=== PATIENT | female | born 1975 | race American Indian/Alaskan Native ===

== ENCOUNTER 2016-06-26 13:20 | Outpatient (CLI) | payer MEDICAID ==
--- NOTE | 2016-06-26 15:55 | Mammography Report ---
BILATERAL DIGITAL SCREENING MAMMOGRAM with CAD: 06/26/16 13:20:00 CLINICAL: Baseline screening. FINDINGS: The breasts are heterogeneously dense, which may obscure small masses. Bilateral parenchymal asymmetries require additional imaging.No architectural distortion or suspicious calcifications. IMPRESSION: Bilateral asymmetries requiring further workup. BI-RADS CATEGORY: 0 -- Additional Imaging Evaluation Required RECOMMENDATION: Recall for bilateral lateralmedial and , spot compression views and bilateral breast ultrasound if needed. ACR BI-RADS MAMMOGRAPHIC CODES: 0 = Needs additional imaging evaluation; 1 = Negative; 2 = Benign; 3 = Probably benign; 4 = Suspicious; 5 = Malignant; 6 = Known biopsy-proven malignancy COMMENT: 1. Dense breast tissue, i.e., adenosis, fibrocystic changes, etc., may obscure an underlying neoplasm. 2. Approximately 10% of cancers are not detected with mammography. 3. A negative mammography report should not delay biopsy if a clinically suspicious mass is present. COMMENT: Patient follow-up letters are generated via our [employer] application.
== END 2016-06-26 13:21 | disposition home or self-care (01) ==
LOC: MAMMO 13:20
PROVIDERS: ATTEND Internal Medicine
DX: Z12.31 Encounter for screening mammogram for malignant neoplasm of breast (principal)
CPT/HCPCS: 77067; G0202

== ENCOUNTER 2016-07-31 14:10 | Outpatient (CLI) | payer MEDICAID ==
--- NOTE | 2016-07-31 15:02 | Mammography Report ---
Bilateral mammogram: Impression bilateral breast imaging is performed for areas of asymmetry described on recent screening examination. The 2 asymmetries described in the right breast and a single asymmetry in the left breast do not appear persistent on the additional compression images. Recommendation: Annual mammogram followup. BI-RADS CATEGORY: 1 = Negative ACR BI-RADS MAMMOGRAPHIC CODES: 0 = Needs additional imaging evaluation; 1 = Negative; 2 = Benign; 3 = Probably benign; 4 = Suspicious; 5 = Malignant; 6 = Known biopsy-proven malignancy COMMENT: 1. Dense breast tissue, i.e., adenosis, fibrocystic changes, etc., may obscure an underlying neoplasm. 2. Approximately 10% of cancers are not detected with mammography. 3. A negative mammography report should not delay biopsy if a clinically suspicious mass is present.
== END 2016-07-31 14:11 | disposition home or self-care (01) ==
LOC: MAMMO 14:10
PROVIDERS: ATTEND Internal Medicine
DX: R92.8 Other abnormal and inconclusive findings on diagnostic imaging of breast (principal)
CPT/HCPCS: 77066; G0204

== ENCOUNTER 2016-08-06 10:51 | Emergency (ER) | payer MEDICAID ==
[2016-08-06 11:15] VITALS: BP 108/67
--- NOTE | 2016-08-06 11:36 | Emergency Department Report ---
ED Female HPI - General Chief complaint: Urogenital-Female Stated complaint: PAINFUL URINATION Time Seen by Provider: 08/06/16 11:20 Source: patient Mode of arrival: Ambulatory Limitations: No Limitations - History of Present Illness MD Complaint: dysuria -: Gradual, days(s) Quality: burning Consistency: intermittent Worsens with: urination Are you Now?: No Associated Symptoms: dysuria, hematuria. denies: vaginal discharge, vaginal bleeding, abdominal pain, fever/chills, loss of appetite, rash - Related Data Previous Rx's Medication Instructions Recorded Last Taken Type Ciprofloxacin [Ciprofloxacin ORAL 500 mg PO Q12H #10 ml 08/06/16 Unknown Rx LIQ] Phenazopyridine [Pyridium] 200 mg PO BID #10 tab 08/06/16 Unknown Rx Allergies Allergy/AdvReac Type Severity Reaction Status Date / Time Sulfa (Sulfonamide Allergy Hives Verified 08/06/16 11:10 Antibiotics) ED Review of Systems ROS: Stated complaint: PAINFUL URINATION Other details as noted in HPI Constitutional: denies: chills, fever, malaise ENT: denies: throat pain Respiratory: denies: cough, shortness of breath Cardiovascular: denies: chest pain, palpitations Gastrointestinal: abdominal pain (suprapubic pain), nausea Genitourinary: urgency, dysuria, frequency, hematuria. denies: discharge Musculoskeletal: back pain ED Past Medical Hx - Past Medical History Previous Medical History?: No - Surgical History Past Surgical History?: No - Social History Smoking Status: Never Smoker Substance Use Type: Alcohol - Medications Home Medications: Home Medications Medication Instructions Recorded Confirmed Last Taken Type Ciprofloxacin [Ciprofloxacin ORAL 500 mg PO Q12H #10 ml 08/06/16 Unknown Rx LIQ] Phenazopyridine [Pyridium] 200 mg PO BID #10 tab 08/06/16 Unknown Rx ED Physical Exam - General Limitations: No Limitations General appearance: alert, in no apparent distress - Head Head exam: Present: atraumatic, normocephalic - Eye Eye exam: Present: PERRL, EOMI - ENT ENT exam: Present: mucous membranes moist - Neck Neck exam: Present: normal inspection, full ROM. Absent: meningismus, lymphadenopathy - Respiratory Respiratory exam: Absent: respiratory distress - Cardiovascular Cardiovascular Exam: Present: regular rate - GI/Abdominal GI/Abdominal exam: Present: soft, tenderness (mild suprapubic tenderness). Absent: distended, guarding, rebound, rigid ED Course Vital Signs 08/06/16 11:10 Temperature 98.4 F Pulse Rate 81 Respiratory 18 Rate Blood Pressure 108/67 O2 Sat by Pulse 100 Oximetry Critical care attestation.: If time is entered above; I have spent that time in minutes in the direct care of this critically ill patient, excluding procedure time. ED Disposition Clinical Impression: UTI (urinary tract infection) Disposition: DISCHARGED TO HOME OR SELFCARE Is pt being admited?: No Condition: Stable Instructions: Urinary Tract Infection in Women (ED) Prescriptions: Ciprofloxacin [Ciprofloxacin ORAL LIQ] 500 mg PO Q12H #10 ml Phenazopyridine [Pyridium] 200 mg PO BID #10 tab Referrals: PRIMARY CARE, [Primary Care Provider] - 3-5 Days Forms: Work/School Release Form(ED)
[2016-08-06 12:17] LABS: Bacteria,Urine 1+ /HPF (Negative); Bilirubin,Urine NEG (Negative); Blood,Urine MOD (Negative); Ketones,Urine NEG (Negative); Leukocyte Esterase,Urine MOD (Negative); Mucus,Urine 2+ /HPF; Nitrite,Urine NEG (Negative); Urobilinogen,Urine < 2.0 mg/dL (<2.0)
== END 2016-08-06 12:43 | disposition home or self-care (01) ==
LOC: ED 10:51
DX: N39.0 Urinary tract infection, site not specified (principal)
CPT/HCPCS: 81001; 81025; 99283

== ENCOUNTER 2016-10-07 15:37 | Emergency (ER) | payer MEDICAID ==
[2016-10-07 15:55] VITALS: BP 105/70
--- NOTE | 2016-10-07 16:19 | Emergency Department Report ---
ED Extremity Problem HPI - General Chief complaint: Wound/Laceration Stated complaint: DOG BITE X 2 DAYS AGO/ALLERGIC REACTION Time Seen by Provider: 10/07/16 16:19 Source: patient Mode of arrival: Ambulatory Limitations: No Limitations - History of Present Illness MD Complaint: extremity pain, extremity swelling - Related Data Home Medications Medication Instructions Recorded Confirmed Last Taken Cephalexin 500 mg PO TID 10/07/16 10/07/16 Unknown Cyclobenzaprine 10 mg PO TID 10/07/16 10/07/16 Unknown Allergies Allergy/AdvReac Type Severity Reaction Status Date / Time Sulfa (Sulfonamide Allergy Hives Verified 08/06/16 11:10 Antibiotics) ED Review of Systems ROS: Stated complaint: DOG BITE X 2 DAYS AGO/ALLERGIC REACTION Other details as noted in HPI Constitutional: denies: chills, fever Eyes: denies: eye pain, eye discharge, vision change ENT: denies: ear pain, throat pain Respiratory: denies: cough, shortness of breath, wheezing Cardiovascular: denies: chest pain, palpitations, dyspnea on exertion, orthopnea Endocrine: no symptoms reported Gastrointestinal: denies: abdominal pain, nausea, diarrhea Genitourinary: denies: urgency, dysuria, discharge Musculoskeletal: denies: back pain, joint swelling, arthralgia Skin: denies: rash, lesions Neurological: denies: headache, weakness, paresthesias Psychiatric: denies: anxiety, depression Hematological/Lymphatic: denies: easy bleeding, easy bruising ED Past Medical Hx - Past Medical History Previous Medical History?: No - Surgical History Past Surgical History?: No - Social History Smoking Status: Never Smoker Substance Use Type: Alcohol - Medications Home Medications: Home Medications Medication Instructions Recorded Confirmed Last Taken Type Cephalexin 500 mg PO TID 10/07/16 10/07/16 Unknown History Cyclobenzaprine 10 mg PO TID 10/07/16 10/07/16 Unknown History ED Physical Exam - General Limitations: No Limitations General appearance: alert, in no apparent distress - Head Head exam: Present: atraumatic, normocephalic - Eye Eye exam: Present: normal appearance, PERRL, EOMI Pupils: Present: normal accommodation - ENT ENT exam: Present: mucous membranes moist - Neck Neck exam: Present: normal inspection - Respiratory Respiratory exam: Present: normal lung sounds bilaterally. Absent: respiratory distress - Cardiovascular Cardiovascular Exam: Present: regular rate, normal rhythm. Absent: systolic murmur, diastolic murmur, rubs, gallop - GI/Abdominal GI/Abdominal exam: Present: soft, normal bowel sounds - Extremities Exam Extremities exam: Present: normal inspection - Expanded Upper Extremity Exam Right Shoulder Exam: Present: normal inspection, full ROM Upper Arm exam: Present: normal inspection, full ROM Elbow exam: Present: full ROM, tenderness, swelling, laceration, ecchymosis. Absent: abrasion, deformity, pain w/ pronation/supination, tenderness over radial head Forearm Wrist exam: Present: full ROM, ecchymosis. Absent: tenderness, swelling , abrasion, laceration, deformity, crepidus, dislocation, erythema, tenderness over anatomical snuff box, pain with axial thumb loading Hand Wrist exam: Present: normal inspection, full ROM. Absent: tenderness, swelling, abrasion, laceration, ecchymosis, deformity, crepidus, dislocation, erythema, amputation, nail avulsion, subungual hematoma Neuro motor exam: Present: wrist extension intact, thumb opposition intact, thumb IP flexion intact, thumb adduction intact, fingers 2-5 abduction intact Neurosensory exam: Present: 2-point discrimination, radial nerve intact, ulnar nerve intact Vascular: Present: normal capillary refill. Absent: vascular compromise, pulse deficit radial art, pulse deficit ulnar art - Back Exam Back exam: Present: normal inspection - Neurological Exam Neurological exam: Present: alert, oriented X3, CN II-XII intact, normal gait - Psychiatric Psychiatric exam: Present: normal affect, normal mood - Skin Skin exam: Present: warm, dry, intact, normal color. Absent: rash ED Course Vital Signs 10/07/16 15:49 Temperature 98 F Pulse Rate 83 Respiratory 16 Rate Blood Pressure 105/70 O2 Sat by Pulse 98 Oximetry ED Medical Decision Making - Lab Data Result diagrams: 10/07/16 17:40 Critical care attestation.: If time is entered above; I have spent that time in minutes in the direct care of this critically ill patient, excluding procedure time. ED Disposition Clinical Impression: Contusion of right arm Disposition: DISCHARGED TO HOME OR SELFCARE Is pt being admited?: No Condition: Stable Referrals: BILL BERTRAND MD [Primary Care Provider] - 3-5 Days
--- NOTE | 2016-10-07 17:31 | XRay Report ---
FINAL REPORT EXAM: XR ELBOW 3 RT HISTORY: dog bite TECHNIQUE: 3 views right elbow PRIORS: None. FINDINGS: No fracture identified. No dislocation seen. No evidence of joint effusion. Joint spaces are within normal limits. No radiopaque foreign body identified. IMPRESSION: Negative elbow series
--- NOTE | 2016-10-07 17:37 | XRay Report ---
FINAL REPORT EXAM: XR WRIST 3 RT HISTORY: dog bite TECHNIQUE: Right wrist 3 views PRIORS: None. FINDINGS: Carpal bones maintain normal alignment. No acute fracture is identified. The distal radius and ulna are intact. No radiopaque foreign body seen. IMPRESSION: Negative wrist series
[2016-10-07 18:01] LABS: Basophils % (Auto) 0.7 % (0.0-1.8); Eosinophils % (Auto) 2.4 % (0.0-4.3); Hematocrit 39.1 % (30.3-42.9); Hemoglobin 13.1 gm/dl (10.1-14.3); Mean Corpuscular HGB Conc 34 % (30-34); Mean Corpuscular Hemoglobin 30 pg (28-32); Mean Corpuscular Volume 88 fl (79-97); Platelet Count 274 K/mm3 (140-440); Red Blood Count 4.46 M/mm3 (3.65-5.03); Red Cell Distribution Width 13.3 % (13.2-15.2)
== END 2016-10-07 18:37 | disposition home or self-care (01) ==
LOC: ED 15:37
DX: S50.11XA Contusion of right forearm, initial encounter (principal); S50.01XA Contusion of right elbow, initial encounter; Z33.1 Pregnant state, incidental; W54.0XXA Bitten by dog, initial encounter; Y93.89 Activity, other specified; Y99.8 Other external cause status; Y92.89 Other specified places as the place of occurrence of the external cause; Z88.2 Allergy status to sulfonamides
CPT/HCPCS: 36415; 84703; 85025

== ENCOUNTER 2016-11-06 02:11 | Emergency (ER) | payer MEDICAID ==
[2016-11-06 03:34] VITALS: BP 94/60
[2016-11-06 04:39] LABS: Basophils % (Auto) 0.8 % (0.0-1.8); Eosinophils % (Auto) 2.8 % (0.0-4.3); Hematocrit 35.2 % (30.3-42.9); Hemoglobin 11.9 gm/dl (10.1-14.3); Mean Corpuscular HGB Conc 34 % (30-34); Mean Corpuscular Hemoglobin 30 pg (28-32); Mean Corpuscular Volume 87 fl (79-97); Platelet Count 269 K/mm3 (140-440); Red Blood Count 4.05 M/mm3 (3.65-5.03); Red Cell Distribution Width 12.7 % (13.2-15.2); White Blood Count 4.1 K/mm3 (4.5-11.0)
[2016-11-06 06:06] LABS: Bilirubin,Urine NEG (Negative); Blood,Urine NEG (Negative); Ketones,Urine NEG (Negative); Leukocyte Esterase,Urine NEG (Negative); Mucus,Urine 1+ /HPF; Nitrite,Urine NEG (Negative); Protein,Urine <15 mg/dL mg/dL (Negative); Urobilinogen,Urine < 2.0 mg/dL (<2.0)
--- NOTE | 2016-11-10 09:21 | ED Elopement Review ---
ED Pt Elopement review - Results review Lab results: Laboratory Tests 11/06/16 11/06/16 11/06/16 04:12 04:12 04:17 WBC 4.1 L RBC 4.05 Hgb 11.9 Hct 35.2 MCV 87 MCH 30 MCHC 34 RDW 12.7 L Plt Count 269 Lymph % (Auto) 34.5 Dawson % (Auto) 9.1 H Eos % (Auto) 2.8 Baso % (Auto) 0.8 Lymph # 1.4 Dawson # 0.4 Eos # 0.1 Baso # 0.0 Seg Neutrophils % 52.8 Seg Neutrophils # 2.2 HCG, Quant 440019 H Urine Color Urine Turbidity Urine pH Ur Specific Bridgman Urine Protein Urine Glucose (UA) Urine Ketones Urine Blood Urine Nitrite Urine Bilirubin Urine Urobilinogen Ur Leukocyte Esterase Urine WBC (Auto) Urine RBC (Auto) U Epithel Cells (Auto) Calcium Oxalate Crystal Urine Mucus Blood Type O POSITIVE Antibody Screen TNR JODI Antibody Screen Negative 11/06/16 Unknown WBC RBC Hgb Hct MCV MCH MCHC RDW Plt Count Lymph % (Auto) Dawson % (Auto) Eos % (Auto) Baso % (Auto) Lymph # Dawson # Eos # Baso # Seg Neutrophils % Seg Neutrophils # HCG, Quant Urine Color Yellow Urine Turbidity Clear Urine pH 6.0 Ur Specific Bridgman 1.019 Urine Protein <15 mg/dl Urine Glucose (UA) Neg Urine Ketones Neg Urine Blood Neg Urine Nitrite Neg Urine Bilirubin Neg Urine Urobilinogen < 2.0 Ur Leukocyte Esterase Neg Urine WBC (Auto) 2.0 Urine RBC (Auto) 4.0 U Epithel Cells (Auto) 4.0 Calcium Oxalate Crystal 1+ Urine Mucus 1+ Blood Type Antibody Screen JODI Antibody Screen - Call Back decision Pt Call Back Decision: Pt to F/U with PMD (follow up with [facility])
== END 2016-11-06 04:30 | disposition left against medical advice (07) ==
LOC: ED 02:11
DX: O26.891 Other specified pregnancy related conditions, first trimester (principal); M54.9 Dorsalgia, unspecified; Z3A.08 8 weeks gestation of pregnancy; Z53.21 Procedure and treatment not carried out due to patient leaving prior to being seen by health care provider
CPT/HCPCS: 36415; 81001; 84702; 85025; 86850; 86900; 86901

== ENCOUNTER 2017-02-15 12:26 | Outpatient (CLI) | payer MEDICAID ==
[2017-02-15 14:07] LABS: Bacteria,Urine 1+ /HPF (Negative); Bilirubin,Urine NEG (Negative); Blood,Urine NEG (Negative); Ketones,Urine NEG (Negative); Leukocyte Esterase,Urine NEG (Negative); Mucus,Urine FEW /HPF; Nitrite,Urine NEG (Negative); Protein,Urine <15 mg/dL mg/dL (Negative); Urobilinogen,Urine < 2.0 mg/dL (<2.0)
[2017-02-15 14:11] VITALS: BP 97/64
== END 2017-02-15 14:25 | disposition home or self-care (01) ==
LOC: TRG 12:26
PROVIDERS: ATTEND Obstetrics & Gynecology
DX: O09.522 Supervision of elderly multigravida, second trimester (principal); O47.02 False labor before 37 completed weeks of gestation, second trimester; Z3A.23 23 weeks gestation of pregnancy
CPT/HCPCS: 59025; 81001

== ENCOUNTER 2017-03-14 18:38 | Emergency (ER) | payer MEDICAID ==
[2017-03-14 22:48] VITALS: BP 107/69
[2017-03-14] MEDS ORDERED: TYLENOL PO ONE (23:29)
--- NOTE | 2017-03-15 01:20 | Emergency Department Report ---
HPI - General Chief Complaint: Extremity Injury, Lower Time Seen by Provider: 03/14/17 23:10 - HPI HPI: 41-year-old female, currently 27 weeks presents today complaining of right foot pain that started yesterday morning. Patient denies any injury or trauma. Patient states that her pain is more in the ball of her right foot. Denies any calf tenderness. Pain is worse weight pressure and weightbearing. Denies fever, chills, nausea, vomiting, chest pain, shortness of breath, abdominal pain, rash, bleeding or discharge. Patient states that she was referred here by her JIGGER ARTISAN for further testing. ED Past Medical Hx - Past Medical History Previous Medical History?: Yes Hx Hypertension: No Hx Diabetes: No Hx Deep Vein Thrombosis: No Hx Renal Disease: No Hx Sickle Cell Disease: No Hx Seizures: No Hx Asthma: No Hx HIV: No - Surgical History Past Surgical History?: No - Social History Smoking Status: Never Smoker Substance Use Type: None - Medications Home Medications: Home Medications Medication Instructions Recorded Confirmed Last Taken Type Cephalexin 500 mg PO TID 10/07/16 10/07/16 Unknown History Cyclobenzaprine 10 mg PO TID 10/07/16 10/07/16 Unknown History ED Review of Systems ROS: Stated complaint: RIGHT FOOT PAIN,SWOLLEN Other details as noted in HPI Constitutional: denies: chills, fever, malaise Eyes: denies: eye pain ENT: denies: ear pain, throat pain, congestion Respiratory: denies: cough, shortness of breath, wheezing Cardiovascular: denies: chest pain, palpitations Endocrine: no symptoms reported Gastrointestinal: denies: abdominal pain, nausea, vomiting Musculoskeletal: joint swelling, arthralgia Skin: denies: rash Neurological: denies: headache, weakness, numbness, paresthesias Physical Exam - Physical Exam Vital Signs: Vital Signs 03/14/17 03/14/17 03/14/17 19:42 22:46 23:33 Temperature 98.8 F 97.8 F Pulse Rate 88 96 H Respiratory 18 16 18 Rate Blood Pressure 102/60 107/69 [Right] O2 Sat by Pulse 100 100 Oximetry 03/14/17 23:52 Temperature Pulse Rate 97 H Respiratory Rate Blood Pressure [Right] O2 Sat by Pulse Oximetry Physical Exam: GENERAL: The patient is well-developed and well-nourished. Patient is in NAD. HEAD: Normocephalic. Atraumatic. NECK: Supple, nontender, without lymphadenopathy. No meningitic signs are noted. CHEST/LUNGS: Clear to auscultation throughout. No calf tenderness to palpation bilaterally. HEART/CARDIOVASCULAR: Regular rate and rhythm. No murmurs, rubs or gallops. ABDOMEN: Abdomen is gravid, nontender. Bowel sounds normoactive. EXTREMITIES: TTP over plantar aspect of 1st MTP joint. No edema noted. Full foot and digit ROM. Normal sensation. Peripheral pulses intact. Capillary refill less than 2 seconds. NEURO: Alert and oriented x 3. NAntalgic gait. ED Course Vital Signs 03/14/17 03/14/17 03/14/17 19:42 22:46 23:33 Temperature 98.8 F 97.8 F Pulse Rate 88 96 H Respiratory 18 16 18 Rate Blood Pressure 102/60 107/69 [Right] O2 Sat by Pulse 100 100 Oximetry 03/14/17 23:52 Temperature Pulse Rate 97 H Respiratory Rate Blood Pressure [Right] O2 Sat by Pulse Oximetry ED Medical Decision Making - Lab Data Vital Signs 03/14/17 03/14/17 03/14/17 19:42 22:46 23:33 Temperature 98.8 F 97.8 F Pulse Rate 88 96 H Respiratory 18 16 18 Rate Blood Pressure 102/60 107/69 [Right] O2 Sat by Pulse 100 100 Oximetry 03/14/17 23:52 Temperature Pulse Rate 97 H Respiratory Rate Blood Pressure [Right] O2 Sat by Pulse Oximetry Lab Results 03/15/17 Range/Units 00:19 D-Dimer 2465.26 H (0-234) ng/mlDDU - Medical Decision Making 41-year-old female presents today complaining of right foot pain since yesterday. Patient was referred here by JIGGER ARTISAN and is concerned of a blood clot. Her d-dimer is 2465. Patient has been given an order for a Doppler ultrasound of right lower extremity. Patient is in no acute distress at this time. She will be discharged home and is encouraged to follow up with a primary care provider. She is encouraged to return to the emergency room for any worsening symptoms. Critical care attestation.: If time is entered above; I have spent that time in minutes in the direct care of this critically ill patient, excluding procedure time. ED Disposition Clinical Impression: Foot pain Qualifiers: Laterality: right Qualified Code(s): M79.671 - Pain in right foot Disposition: - TO HOME OR SELFCARE Is pt being admited?: No Does the pt Need Aspirin: No Condition: Stable Instructions: Deep Venous Thrombosis (ED) Additional Instructions: A Doppler ultrasound order form has been provided. Follow-up with primary care provider. Return to the emergency department if symptoms worsen. Referrals: ROBERTO GUALLPA MD [Primary Care Provider] - 3-5 Days MELI GOMEZ MD [Staff Physician] - 3-5 Days Forms: Work/School Release Form(ED) Time of Disposition: 01:25
== END 2017-03-15 01:50 | disposition home or self-care (01) ==
LOC: ED 18:38
DX: M79.671 Pain in right foot (principal)
CPT/HCPCS: 36415; 85379; 99283

== ENCOUNTER 2017-03-16 08:16 | Outpatient (CLI) | payer MEDICAID ==
--- NOTE | 2017-03-19 09:49 | Vascular Lab Report ---
Right Lower Extremity Venous Duplex Study: Reason for Exam: Pain of the right lower extremity. Comments on the Right: All veins visualized are freely compressible without evidence of internal echogenicity. Flow is spontaneous and phasic throughout. No evidence of acute or chronic thrombus is seen in any of the vessels visualized. Soft tissue changes are noted in the bottom of the right foot. Clinical significance is unclear. Clinical correlation is recommended. Comments on the Left: A limited duplex study was done of the proximal veins of the left lower extremity. All veins visualized are freely compressible without evidence of internal echogenicity. Flow is spontaneous and phasic throughout. No evidence of acute or chronic thrombus is seen in any of the vessels visualized. Impression: No evidence of acute or chronic deep venous thrombosis in the right lower extremity.
== END 2017-03-16 08:17 | disposition home or self-care (01) ==
LOC: VAS 08:16
PROVIDERS: ATTEND Physician Assistant Medical
DX: M79.671 Pain in right foot (principal); R79.1 Abnormal coagulation profile